=== PATIENT | female | born 1960 ===

== ENCOUNTER 2025-01-17 05:55 | Day surgery (SDC) | payer OTHER ==
[2025-01-12 11:40] VITALS: BP 140/90
[~2025-01-17] VITALS: Ht 165.1 cm; Wt 82.6 kg
[~2025-01-17 05:55] MED LIST: COZAAR100 MG PO; DOXAZOSIN MESYLA2 MG PO; FOLIC ACID0.8 M1; GABAPENTIN100 MG; LIPITOR20 MG; PROPRANOLOL HCL10 MG; SYNTHROID125 MCG PO
[2025-01-17] MEDS ORDERED: POVIDONE-IODINE 118 ML BOTT TOP ONE (07:32)
[2025-01-17] MEDS ORDERED: HEMOSTATIC MATRIX 1 KIT KIT TOP ONE (07:32)
[2025-01-17] MEDS ORDERED: DIBUCAINE 30 GM TUBE ONE (07:32)
[2025-01-17] MEDS ORDERED: BUPIVACAINE HCL/Mpf 0.5% 10ML VIAL ONE (07:32)
[2025-01-17] MEDS ORDERED: METRONIDAZOLE/SODIUM CHLORIDE 500 MG/100 ML PIGGYBACK IV ONE (07:34)
[2025-01-17] MEDS ORDERED: CEFTRIAXONE SODIUM 2,000 MG VIAL ONE (07:34)
[2025-01-17] MEDS ORDERED: BUPIVACAINE LIPOSOME/PF 266 MG/20 ML VIAL IJ ONE (08:05)
[2025-01-17] MEDS ORDERED: BUPIVACAINE HCL/MPF 0.5% 30ML VIAL ONE (08:20)
[2025-01-17] MEDS ORDERED: PERCOCET 5-3251 EACH PO (10:30)
[2025-01-17] MEDS ORDERED: CELECOXIB200 MG PO (10:30)
[2025-01-17] MEDS ORDERED: NEURONTIN300 MG PO (10:30)
[2025-01-17] MEDS ORDERED: INTESTINEX680 M1 PO (10:30)
== END 2025-01-17 15:30 | disposition home or self-care (01) ==
LOC: CIR.AMB 05:55
PROVIDERS: ATTEND Surgery
DX: K64.3 Fourth degree hemorrhoids (principal); K64.4 Residual hemorrhoidal skin tags; K62.3 Rectal prolapse